=== PATIENT | female | born 1965 | race Caucasian/White ===

== ENCOUNTER 2023-07-20 09:31 | Outpatient (CLI) | payer OTHER | END 2023-07-20 09:43 | disposition home or self-care (01) | LOC: SONOGRAMA 09:31 | DX: M71.21 Synovial cyst of popliteal space [Baker], right knee (principal) ==

== ENCOUNTER 2025-04-25 07:10 | Outpatient (CLI) | payer OTHER | END 2025-04-25 07:12 | disposition home or self-care (01) | LOC: TOM 07:10 | DX: N20.0 Calculus of kidney (principal) ==